=== PATIENT | male | born 1970 | race Caucasian/White ===

== ENCOUNTER 2018-04-24 20:56 | Emergency (ER) | payer OTHER ==
[2018-04-24] MEDS ORDERED: Lidocaine 1% with EPINEPHrine 1:100,000 50 ML MDV INJECT STA (22:42)
[2018-04-24] MEDS ORDERED: Bacitracin Oint 1 GM U/D Packet TOP ONE (23:40)
--- NOTE | 2018-04-24 23:40 | EDM.PDOC ---
ED HPI GENERAL MEDICAL PROBLEM - General Chief Complaint: Laceration Stated Complaint: LEFT HAND FISH HOOK Time Seen by Provider: 04/24/18 22:38 Source of Information: Reports: Patient, RN Notes Reviewed History Limitations: Reports: No Limitations - History of Present Illness INITIAL COMMENTS - FREE TEXT/NARRATIVE: Here with family members Chief complaint Facial can be added in left hand fingers History of present illness About 6 PM this evening, his left ring and long finger became embedded into 2 of the hooks on trouble hook. Unable to remove No other injuries. fishhook Pain Score (Numeric/FACES): 2 - Related Data Allergies Allergy/AdvReac Type Severity Reaction Status Date / Time No Known Allergies Allergy Verified 04/24/18 22:15 Home Meds: Home Meds NK [No Known Home Meds] 04/24/18 [History] Past Medical History - Past Health History Medical/Surgical History: Denies Medical/Surgical History Social & Family History - Tobacco Use Smoking Status *Q: Never Smoker - Caffeine Use Caffeine Use: Reports: Coffee - Alcohol Use Days Per Week of Alcohol Use: 2 Number of Drinks Per Day: 2 Total Drinks Per Week: 4 - Recreational Drug Use Recreational Drug Use: No ED ROS GENERAL - Review of Systems Review Of Systems: ROS reveals no pertinent complaints other than HPI. Skin: Reports: Other ([place] embedded into left ring and long fingers) ED EXAM, SKIN/RASH Exam: See Below Exam Limited By: No Limitations General Appearance: Alert, Mild Distress Respiratory/Chest: No Respiratory Distress, No Accessory Muscle Use Cardiovascular: Normal Peripheral Pulses, Regular Rate, Rhythm Skin: Other (Punctured fingers left ring left long with each punctured by one of the triple hooks) ED SKIN PROCEDURES - Foreign Body Removal Consent Obtained:: Patient Performing Doctor:: Puja Aceves Foreign Body Other Location Comment:: 2 of the hooks of a triple hold Coreg embedded into the adjacent left ring and long fingers Anesthesia Type: Local (1% lidocaine with epinephrine 2 mL total) Complications:: No Comments:: Removed using needle over helena technique Course - Vital Signs Last Recorded V/S: Last Vital Signs Temp 35.5 C 04/24/18 22:19 Pulse 63 04/24/18 22:19 Resp 14 04/24/18 22:19 BP 158/96 H 04/24/18 22:19 Pulse Ox 99 04/24/18 22:19 - Orders/Labs/Meds Meds: Medications Discontinued Medications Generic Name Dose Route Start Last Admin Trade Name Marco PRN Reason Stop Dose Admin Bacitracin 1 dose 04/24/18 23:40 04/24/18 23:47 Bacitracin Oint 1 Gm TOP 04/24/18 23:41 1 dose ONETIME ONE Administration Lidocaine/Epinephrine 10 ml 04/24/18 22:42 04/24/18 22:49 Xylocaine 1% With Epinephrine 1:100,000 INJECT 04/24/18 22:43 10 ml ONETIME STA Administration - Re-Assessments/Exams Free Text/Narrative Re-Assessment/Exam: 04/25/18 03:37 47-year-old male with fish hooks embedded into the left ring and long fingers See procedure note Dressing applied by nursing staff with antibiotic ointment See discharge instructions Departure - Departure Time of Disposition: 23:38 Disposition: Home, Self-Care 01 Condition: Good Clinical Impression: [place] injury to finger Qualifiers: Encounter type: initial encounter Laterality: left Qualified Code(s): S69.92XA - Unspecified injury of left wrist, hand and finger(s), initial encounter - Discharge Information Instructions: Puncture Wound Referrals: PCP,None [Primary Care Provider] - Forms: ED Department Discharge Additional Instructions: Foreign body in the skin use/wash/bathe as usual Watch for signs of infection such as increasing pain, increased swelling, redness, red streaks going up the finger or hand, or cloudy or smelly discharge from the wound
== END 2018-04-24 23:49 | disposition home or self-care (01) ==
LOC: JP.ED 20:56
DX: S60.455A Superficial foreign body of left ring finger, initial encounter (principal); W45.8XXA Other foreign body or object entering through skin, initial encounter
CPT/HCPCS: 99283